=== PATIENT | female | born 1965 | race Caucasian/White ===

== ENCOUNTER 2020-07-08 16:59 | Outpatient (REF) | payer MEDICAID, SELFPAY ==
[2020-07-08 21:11] LABS: Abs Immature Grans 0.02 10^3/uL (0.0-0.06); Absolute Basophil Count 0.03 10^3/uL (0.0-0.2); Absolute Eosinophil Count 0.23 10^3/uL (0.0-0.7); Absolute Lymphocyte Count 2.07 10^3/uL (1.2-3.4); Absolute Monocyte Count 0.55 10^3/uL (0.1-0.8); Absolute Neutrophil Count 4.36 10^3/uL (1.2-6.7); Basophils % 0.4; Eosinophils % 3.2; HGB 13.6 g/dL (11.2-15.7); Immature Grans % 0.3; Lymphocytes % 28.5; MCH 28.9 pg (27.0-33.0); MCHC 32.4 % (32.0-36.0); MCV 89.4 fL (80-95); MPV 11.4 fL (8.0-11.0); Monocytes % 7.6; Nucleated RBC 0 %; Platelet Count 309 10^3/uL (130-400); RDW 12.9 % (11.7-14.6); RDW-SD 42.2 fL; WBC 7.26 10^3/uL (4.4-10.8)
[2020-07-08 21:47] LABS: ALT 22 U/L (14-59); AST 13 U/L (15-37); Albumin 4.5 g/dL (3.4-5.0); Alkaline Phosphatase 107 U/L (46-116); Anion Gap 9.4 mmol/L (3-11); BUN 16 mg/dL (7-18); Bilirubin, Total 0.2 mg/dL (0.2-1.0); CO2 28.6 mmol/L (21.0-32.0); Calcium 9.9 mg/dL (8.5-10.1); Chloride 102 mmol/L (98-107); Glucose 87 mg/dL (74-106); Potassium 4.7 mmol/L (3.5-5.1); Sodium 140 mmol/L (136-145); Total Protein 8.1 g/dL (6.4-8.2)
[2020-07-08 21:59] LABS: Lipase 124 U/L (73-393)
== END 2020-07-08 17:19 ==
LOC: NCHCN 16:59
PROVIDERS: Visit Provider Nurse Practitioner Family
DX: R10.32 Left lower quadrant pain (principal)
CPT/HCPCS: 80053; 83690; 85025

== ENCOUNTER 2020-09-30 22:12 | Outpatient (REF) | payer MEDICAID, SELFPAY ==
[2020-09-30 22:08] LABS: Hemoglobin A1C 5.5 % (<5.7)
[2020-09-30 22:29] LABS: Calculated LDL 111 mg/dL (<100); Cholesterol 200 mg/dL (<200); HDL Cholesterol 76 mg/dL (40-60); Triglyceride 68 mg/dL (<150)
== END 2020-09-30 22:13 | disposition home or self-care (01) ==
LOC: NCHCN 22:12
PROVIDERS: Visit Provider Nurse Practitioner Family
DX: E78.5 Hyperlipidemia, unspecified (principal); E66.9 Obesity, unspecified
CPT/HCPCS: 80061; 83036

== ENCOUNTER 2021-06-03 16:09 | Outpatient (REF) | payer MEDICAID, SELFPAY ==
[2021-06-03 21:57] LABS: HCT 41.8 % (36.0-46.0); HGB 13.8 g/dL (11.2-15.7); MCH 29.1 pg (27.0-33.0); MPV 11.6 fL (8.0-11.0); Platelet Count 318 10^3/uL (130-400); RBC 4.75 10^6/uL (3.93-5.22); RDW 12.2 % (11.7-14.6); RDW-SD 39.2 fL; WBC 9.04 10^3/uL (4.4-10.8)
[2021-06-03 22:12] LABS: ALT 22 U/L (14-59); AST 17 U/L (15-37); Albumin 4.6 g/dL (3.4-5.0); Alkaline Phosphatase 99 U/L (46-116); Anion Gap 8.7 mmol/L (3-11); BUN 22 mg/dL (7-18); Bilirubin, Total 0.2 mg/dL (0.2-1.0); CO2 30.3 mmol/L (21.0-32.0); CREATININE 0.7 mg/dL (0.55-1.02); Chloride 102 mmol/L (98-107); Glucose 84 mg/dL (74-106); Sodium 141 mmol/L (136-145); TSH (W/Ref FT4) 0.02 uIU/mL (0.36-3.74); Total Protein 8.3 g/dL (6.4-8.2)
[2021-06-03 22:29] LABS: FREE T4 1.15 ng/dL (0.76-1.46)
== END 2021-06-03 16:10 | disposition home or self-care (01) ==
LOC: NCHCN 16:09
PROVIDERS: Visit Provider Nurse Practitioner Family
DX: I10 Essential (primary) hypertension (principal); Z00.00 Encounter for general adult medical examination without abnormal findings
CPT/HCPCS: 80053; 85027; 84439; 84443

== ENCOUNTER 2021-06-11 12:54 | Outpatient (REF) | payer MEDICAID, SELFPAY ==
[2021-06-11 22:21] LABS: ALT 21 U/L (14-59); AST 15 U/L (15-37); Albumin 4.1 g/dL (3.4-5.0); Alkaline Phosphatase 108 U/L (46-116); Anion Gap 8.4 mmol/L (3-11); BUN 13 mg/dL (7-18); Bilirubin, Total 0.3 mg/dL (0.2-1.0); CO2 30.6 mmol/L (21.0-32.0); CREATININE 0.7 mg/dL (0.55-1.02); Calcium 9.4 mg/dL (8.5-10.1); Chloride 104 mmol/L (98-107); FREE T4 0.91 ng/dL (0.76-1.46); Glucose 83 mg/dL (74-106); Potassium 4.3 mmol/L (3.5-5.1); Sodium 143 mmol/L (136-145); TSH 0.05 uIU/mL (0.36-3.74); Total Protein 7.6 g/dL (6.4-8.2)
[2021-06-12 17:47] LABS: T3,Free 3.2 pg/mL (2.8-5.3)
== END 2021-06-11 12:55 | disposition home or self-care (01) ==
LOC: NCHCN 12:54
PROVIDERS: Visit Provider Nurse Practitioner Family
DX: R94.6 Abnormal results of thyroid function studies (principal); Z00.01 Encounter for general adult medical examination with abnormal findings
CPT/HCPCS: 80053; 84439; 84443; 84481

== ENCOUNTER 2024-05-17 16:15 | Outpatient (REF) | payer MEDICAID, SELFPAY ==
[2024-05-17 14:32] LABS: HGB 14.5 g/dL (11.2-15.7); MCV 88 fL (80-95); MPV 10.6 fL (8.0-11.0); Platelet Count 306 10^3/uL (130-400); RDW 13.6 % (11.7-14.6); RDW-SD 43.8 fL; WBC 6.85 10^3/uL (4.4-10.8)
[2024-05-17 14:49] LABS: ALT 21 U/L (14-59); AST 22 U/L (15-37); Albumin 4.4 g/dL (3.4-5.0); Alkaline Phosphatase 113 U/L (46-116); BUN 9 mg/dL (7-18); Bilirubin, Total 0.41 mg/dL (0.2-1.0); CREATININE 0.8 mg/dL (0.55-1.02); Calcium 9.8 mg/dL (8.5-10.1); Calculated LDL 147 mg/dL (<100); Chloride 102 mmol/L (98-107); Cholesterol 247 mg/dL (<200); Estimated GFR 85.35 (mL/min/1.73m2); Glucose 99 mg/dL (74-106); HDL Cholesterol 90 mg/dL (40-60); Potassium 4.1 mmol/L (3.5-5.1); Sodium 140 mmol/L (136-145); TSH (W/Ref FT4) 3.96 uIU/mL (0.36-3.74); Total Protein 8.7 g/dL (6.4-8.2); Triglyceride 54 mg/dL (<150)
[2024-05-17 15:41] LABS: Hemoglobin A1C 5.6 % (<5.7)
[2024-05-17 16:30] LABS: FREE T4 0.94 ng/dL (0.76-1.46)
== END 2024-05-17 16:16 | disposition home or self-care (01) ==
LOC: NCHCN 16:15
PROVIDERS: Visit Provider Family Medicine
DX: E78.5 Hyperlipidemia, unspecified (principal); E66.9 Obesity, unspecified
CPT/HCPCS: 80053; 80061; 85027; 83036; 84439; 84443

== ENCOUNTER 2024-06-19 16:50 | Outpatient (REF) | payer MEDICAID, SELFPAY | END 2024-06-19 16:51 | disposition home or self-care (01) | LOC: NCHCN 16:50 | PROVIDERS: Visit Provider Family Medicine | DX: N39.0 Urinary tract infection, site not specified (principal); R82.89 Other abnormal findings on cytological and histological examination of urine | CPT/HCPCS: 87086 ==